=== PATIENT | male | born 1970 | race Two or more races ===

== ENCOUNTER 2021-10-19 19:55 | Emergency (ER) | payer SELFPAY ==
[~2021-10-19] VITALS: Ht 170.2 cm; Wt 72.6 kg
--- NOTE | 2021-10-19 20:00 | NUR ---
ALFREDO 80 FROM OUTSIDE 10/11 C/O BODY ITCH, ETOH. PLACED ON CHAIR, AAOX4. SEEN AND EXAMINED BY
[2021-10-19 20:06] VITALS: BP 159/88
[2021-10-19] MEDS ORDERED: CETI-90 PO (20:14)
[2021-10-19] MEDS ORDERED: cetrizine 10 MG TABLET ONE (20:14)
[2021-10-19] MEDS ORDERED: cetrizine 10 MG TABLET PO ONE (20:30)
--- NOTE | 2021-10-19 20:30 | NUR ---
Netta forrest in ED - 10/19/21 at 4 by SRIRAM ALFREDO Cardoso FROM OUTSIDE 10/11 C/O BODY ITCH, ETOH. PLACED ON CHAIR, AAOX4.
--- NOTE | 2021-10-19 20:30 | NUR ---
Patient discharged to home in stable condition. Written and verbal after care instructions given. Patient verbalizes understanding of instruction.
== END 2021-10-19 20:30 | disposition home or self-care (01) ==
LOC: ER 19:56
DX: L29.9 Pruritus, unspecified (principal); Z59.00 Homelessness unspecified